=== PATIENT | male | born 1990 | race Caucasian/White ===

== ENCOUNTER 2016-02-28 04:01 | Emergency (ER) | payer SELFPAY ==
[~2016-02-28] VITALS: Wt 86.5 kg
[~2016-02-28 04:01] MED LIST: HYDR-906 PO; NAPR-688 PO; ONDA4TAB14 PO; TAMS-14 PO
[2016-02-28] MEDS ORDERED: SOD CHLORIDE 0.9% 1,000 ML IV STA (04:27)
[2016-02-28] MEDS ORDERED: HYDROmorphONE 1 MG/ML SYG IV STA (04:27)
[2016-02-28] MEDS ORDERED: ONDANSETRON 4 MG INJ IV STA (04:27)
[2016-02-28 05:07] LABS: BASOPHILS % 0.4 % (0.0-2.0); EOSINOPHILS # 0.1 10^3/ul (0.0-0.5); EOSINOPHILS % 1.7 % (0.0-7.0); HEMATOCRIT 41.5 % (42.0-52.0); LYMPHOCYTES # 1.2 10^3/ul (0.8-2.9); LYMPHOCYTES % 17.3 % (15.0-51.0); MEAN CORPUSCULAR HEMOGLOBIN 30.5 pg (29.0-33.0); MEAN CORPUSCULAR HGB CONC 33.9 g/dl (32.0-37.0); MEAN CORPUSCULAR VOLUME 90.1 fl (82.0-101.0); MEAN PLATELET VOLUME 10.2 fl (7.4-10.4); MONOCYTE # 0.6 10^3/ul (0.3-0.9); MONOCYTES % 9.1 % (0.0-11.0); NEUTROPHIL # 5.1 10^3/ul (1.6-7.5); NEUTROPHILS % 71.5 % (39.0-77.0); PLATELET COUNT 150 10^3/UL (140-440); RED CELL DISTRIBUTION WIDTH 12.8 % (11.5-14.5); UNCORRECTED WBC 7.1 10^3/ul (4.8-10.8); WHITE BLOOD COUNT 7.1 10^3/ul (4.8-10.8)
[2016-02-28 05:11] LABS: POTASSIUM 3.6 mmol/L (3.5-5.1)
[2016-02-28 05:13] LABS: CREATININE 1.14 mg/dl (0.61-1.24)
[2016-02-28 05:14] LABS: CALCIUM 9.7 mg/dl (8.4-10.2)
[2016-02-28 05:37] LABS: CONDITION 1
[2016-02-28] MEDS ORDERED: HYDR-902 PO (05:45)
[2016-02-28] MEDS ORDERED: CIPR500T4 PO (05:49)
--- NOTE | 2016-02-28 05:49 | ERD ---
ER Documentation Chief Complaint Date/Time DATE: 02/28/16 TIME: 05:46 Chief Complaint right flank pain since last night. hx of kidney stone HPI This 25-year-old male who was diagnosed with the right proximal 5 mm ureter stone 2 days ago here. Patient says he was doing relatively well until 2 hours ago he developed sudden sharp right flank pain radiating into the right testicle. His nausea but no vomiting no hematuria. Says the pain was severe at onset now is mild to moderate. No fever or dysuria ROS All systems reviewed and are negative except as per history of present illness. Medications Home Meds Active Scripts Hydrocodone/Acetaminophen ([place] 10-325 Tablet) 1 Each Tablet, 1 TAB PO Q6H Y for PAIN, #25 TAB Prov:BERNY PRUITT DO 02/28/16 Tamsulosin Hcl* (Flomax*) 0.4 Mg Cap.er.24h, 0.4 MG PO DAILY, #20 CAP Prov:ABDIRIZAK JACKSON DO 02/23/16 Ondansetron (Ondansetron Odt) 4 Mg Tab.rapdis, 4 MG PO Q6H Y for NAUSEA AND/OR VOMITING, #10 TAB Prov:RENETTAABDIRIZAK DO 02/23/16 Naproxen* (Naproxen*) 500 Mg Tablet, 500 MG PO BID, #30 TAB Prov:GREENABDIRIZAK DO 02/23/16 Hydrocodone/Acetaminophen ([place] 5-325 Tablet) 1 Each Tablet, 1 EACH PO Q6, #20 TAB Prov:GREENABDIRIZAK DO 02/23/16 Allergies Allergies: Coded Allergies: No Known Allergy (Unverified , 02/28/16) PMhx/Soc Medical and Surgical Hx: pt denies Medical Hx History of Surgery: Yes (RT SHOULDER, LT ELBOW) Hx Alcohol Use: No Hx Substance Use: No Hx Tobacco Use: No Smoking Status: Never smoker FmHx Family History: No coronary disease Physical Exam Vitals Vital Signs Date Time Temp Pulse Resp B/P Pulse Ox O2 Delivery O2 Flow Rate FiO2 02/28/16 04:05 98.3 74 20 136/91 98 Physical Exam Const: Well-developed, well-nourished Head: Atraumatic, normocephalic Eyes: Normal Conjunctiva, PERRLA, EOMI, normal sclera, no nystagmus ENT: Normal External Ears, Nose and Mouth, moist mucus membranes. Neck: Full range of motion. No meningismus, no lymphadenopathy. Resp: Clear to auscultation bilaterally, no wheezing, rhonchi, rales Cardio: Regular rate and rhythm, no murmurs, S1 S2 present Abd: Soft, mild right groin tenderness no abdominal tenderness, non distended. Normal bowel sounds, no guarding or rebound, no pulsitile abdominal masses or bruits Skin: No petechiae or rashes, no ecchymosis , no maculopapular rash Back: No midline or flank tenderness Ext: No cyanosis, or edema, FROM x 4, normal inspection, neurovascularly intact x 4 Neur: Awake and alert, STR 5/5 x 4, sensation intact x 4, no focal findings, cerebellum intact Psych: Normal Mood and Affect Result Diagram: 02/28/1643402/28/16 0435 Results 24 hrs Laboratory Tests Test 02/28/16 04:35 Anion Gap 17 Basophils # 0.010^3/ul Basophils % 0.4% Blood Urea Nitrogen 16mg/dl Calcium Level 9.7mg/dl Carbon Dioxide Level 30mmol/L Chloride Level 100mmol/L Creatinine 1.14mg/dl Eosinophils # 0.110^3/ul Eosinophils % 1.7% Glucose Level 106mg/dl Hematocrit 41.5% Hemoglobin 14.0g/dl Lymphocytes # 1.210^3/ul Lymphocytes % 17.3% Mean Corpuscular Hemoglobin 30.5pg Mean Corpuscular Hemoglobin Concent 33.9g/dl Mean Corpuscular Volume 90.1fl Mean Platelet Volume 10.2fl Monocytes # 0.610^3/ul Monocytes % 9.1% Neutrophils # 5.110^3/ul Neutrophils % 71.5% Nucleated Red Blood Cells # 0.010^3/ul Nucleated Red Blood Cells % 0.0/100WBC Platelet Count 61011^3/UL Potassium Level 3.6mmol/L Red Blood Count 4.6010^6/ul Red Cell Distribution Width 12.8% Sodium Level 143mmol/L White Blood Count 7.110^3/ul Current Medications Medications (Trade) Dose Ordered Sig/Iraida Route PRN Reason Start Time Stop Time Status Last Admin Dose Admin Sodium Chloride (NS) 1,000 ml @ 1,000 mls/hr Q1H STAT IV 02/28/16 04:27 02/28/16 05:26 DC 02/28/16 04:44 Hydromorphone HCl (Dilaudid) 1 mg ONCE STAT IV 02/28/16 04:27 02/28/16 04:28 DC 02/28/16 04:42 Ondansetron HCl (Zofran Inj) 4 mg ONCE STAT IV 02/28/16 04:27 02/28/16 04:28 DC 02/28/16 04:41 Procedures/MDM Patient's labs are unremarkable I will cover him with Cipro as he is unable to give us a urine sample. He does not need another CAT scan he had 1 2 days ago that showed a 5 mm stone. This should likely pass his pain is likely due to the stone falling down the ureter more. Patient is currently on Flomax and [place] 5 mg I will increase [place] to to 10 mg for better pain control Currently has no pain Departure Diagnosis: Primary Impression: Ureterolithiasis Condition: Stable Patient Instructions: Kidney Stone W/ Colic Referrals: AZUL SAINI MD, APOSTOLOS A. DO Feb 28, 2016 05:49
[2016-02-28 06:19] LABS: ADD UMIC YES; URINE BILIRUBIN (Dip) NEGATIVE (NEGATIVE); URINE BLOOD (Dip) 2+ (NEGATIVE); URINE COLOR LT. YELLOW (YELLOW); URINE GLUCOSE (Dip) NEGATIVE (NEGATIVE); URINE KETONES (Dip) TRACE (NEGATIVE); URINE LEUKOCYTE ESTERASE (Dip) 1+ (NEGATIVE); URINE NITRITE (Dip) NEGATIVE (NEGATIVE); URINE TOTAL PROTEIN (Dip) NEGATIVE (NEGATIVE); URINE UROBILINOGEN (Dip) 0.2 E.U./dL (0.1-1.0)
[2016-02-28 06:20] VITALS: BP 120/76; PULSE 101; RESP 16
[2016-02-28 06:48] LABS: BACTERIA,URINE FEW
== END 2016-02-28 06:27 | disposition home or self-care (01) ==
LOC: E/R 04:01
DX: N20.1 Calculus of ureter (principal); R11.0 Nausea
CPT/HCPCS: 36415; 80048; 81001; 81003; 85025; 96374; 96375; 99284; J1170; J2405; J7030